=== PATIENT | female | born 1935 | race Hispanic/Latino ===

== ENCOUNTER 2020-12-24 13:58 | Outpatient (CLI) | payer MEDICARE ==
--- NOTE | 2020-12-24 18:35 | Mammography Report ---
DIGITAL SCREENING MAMMOGRAM WITH CAD, 12/24/2020 CLINICAL INFORMATION / INDICATION: Routine screening mammography. SCREENING MAMMO UNILATERAL LEFT Z12 .31 TECHNIQUE: Digital left 2D mammography was obtained in the craniocaudal and mediolateral oblique pro jections. This examination was interpreted with the benefit of Computer-Aided Detection analysis. COMPARISON: 10/21/2016 through 11/08/2019 FINDINGS: Breast Density: The breasts are almost entirely fatty. No dominant mass, suspicious calcifications, or architectural distortion in the left breast. IMPRESSION: No mammographic evidence of malignancy. Follow up recommendation: Routine yearly BI-RADS Category 1: Negative. A "normal" or negative report should not discourage follow up or biopsy of a clinically significant f inding. A written summary of these findings will be mailed to the patient. The patient will be entered into a mammography reporting system which will generate a reminder letter for the patient's next appointmen t at the appropriate interval. [employer] recommends yearly mammograms starting at age 40 and continuing as l marylin as a woman is in good health. Breast MRI is recommended for women with an approximate 20-25% or greater lifetime risk of breast cancer, including women with a strong family history of breast or ova kyleigh cancer or who have been treated for Hodgkin's disease. Signer Name: Mckay Quijano MD Signed: 12/24/2020 6:30 PM Workstation Name: [id number]
== END 2020-12-24 13:59 | disposition home or self-care (01) ==
LOC: SPVWC 13:58
PROVIDERS: ATTEND Surgery
DX: Z12.31 Encounter for screening mammogram for malignant neoplasm of breast (principal); N64.89 Other specified disorders of breast